=== PATIENT | female | born 1960 | race Caucasian/White ===

== ENCOUNTER 2019-10-29 10:00 | Outpatient (CLI) | payer OTHER, SELFPAY ==
[2019-10-29 10:33] LABS: Basophils Percent Auto 0.6 % (0.2-1.2); Eosinophils Absolute Auto 0.1 K/mm3 (0-0.3); Eosinophils Percent Auto 2.1 % (0-4.4); Hematocrit 39.1 % (37.0-47.0); Hemoglobin 12.9 g/dL (12.0-15.0); Immature Granulocyte Absolute 0.01 K/mm3 (0.00-0.031); Immature Granulocyte Percent A 0.3 % (0-0.5); Lymphocytes Absolute Auto 1.52 K/mm3 (0.9-3.2); Lymphocytes Percent Auto 44.6 % (18.3-44.2); Mean Corpuscular Hemoglobin 30.2 pg (26-34); Mean Corpuscular Volume 91.6 fl (80-100); Mean Platelet Volume 9.9 fl (7.4-10.4); Monocytes Absolute Auto 0.2 K/mm3 (0.1-0.6); Monocytes Percent Auto 6.5 % (2.6-8.5); Neutrophils Absolute Auto 1.6 K/mm3 (1.3-6.7); Neutrophils Percent Auto 45.9 % (45.5-73.1); Platelet Count Result 195 k/mm3 (150-375); Red Blood Count 4.27 M/mm3 (4.2-5.4); Red Cell Distribution Width 11.9 % (11.5-14.5); White Blood Count 3.4 K/mm3 (4.5-10.0)
[2019-10-29 10:35] LABS: Add Urine Microscopic? NO; Appearance Urine Clear (Clear); Bilirubin Urine Negative (Negative); Blood Urine Negative (Negative); Color Urine Straw (Yellow); Glucose Urine UA Negative (Negative); Ketones Urine Negative (Negative); Leukocyte Esterase Ur Negative LEU/UL (Negative); Nitrate Urine Negative (Negative); Protein Urine Negative (Negative); Specific Grav Ur 1.011 (1.001-1.035); Urobilinogen Urine Negative mg/dL (<2.0)
[2019-10-29 10:47] LABS: Alanine Aminotransferase 15 U/L (4-35); Albumin Level 4.3 g/dL (3.5-5.1); Alkaline Phosphatase 47 U/L (38-126); Aspartate Amino Transferase 27 U/L (14-36); Bilirubin,Total 0.6 mg/dL (0.2-1.3); Blood Urea Nitrogen 18 mg/dL (7-17); Calcium 9.2 mg/dL (8.4-10.2); Carbon Dioxide 32 mmol/L (22-30); Chloride 103 mmol/L (98-107); Cholesterol 226 mg/dL (0-200); Estimated Glomerular Filt Rate > 60; Glucose 90 mg/dL (65-105); HDL Direct 76 mg/dL; Potassium 4.4 mmol/L (3.4-5.0); Sodium 138 mmol/L (137-145); Triglycerides 53 mg/dL (<150)
[2019-10-29 10:58] LABS: LDL Cholesterol Direct 112 mg/dL
[2019-10-29 11:16] LABS: Thyroid Stimulating Hormone 0.118 uIU/mL (0.465-4.680)
[2019-10-29 11:36] LABS: Free T4 Free Thyroxine 1.94 ng/mL (0.78-2.19); Vitamin D 25 Hydroxy 55.1 ng/mL
== END 2019-10-29 10:01 | disposition home or self-care (01) ==
PROVIDERS: PCP Internal Medicine; Visit Provider Internal Medicine
DX: E89.0 Postprocedural hypothyroidism (principal); I10 Essential (primary) hypertension; E78.2 Mixed hyperlipidemia
CPT/HCPCS: 36415; 80053; 80061; 81003; 82306; 84439; 84443; 84550; 85025

== ENCOUNTER 2020-03-16 10:57 | Outpatient (CLI) | payer OTHER, SELFPAY ==
[2020-03-16 11:52] LABS: Basophils Percent Auto 0.4 % (0.2-1.2); Eosinophils Absolute Auto 0.1 K/mm3 (0-0.3); Eosinophils Percent Auto 1.5 % (0-4.4); Hematocrit 38.9 % (37.0-47.0); Hemoglobin 12.8 g/dL (12.0-15.0); Immature Granulocyte Absolute 0.01 K/mm3 (0.00-0.031); Immature Granulocyte Percent A 0.2 % (0-0.5); Lymphocytes Absolute Auto 1.66 K/mm3 (0.9-3.2); Lymphocytes Percent Auto 35.2 % (18.3-44.2); Mean Corpuscular HGB Conc 32.9 g/dl (32-36); Mean Corpuscular Hemoglobin 30.5 pg (26-34); Mean Corpuscular Volume 92.6 fl (80-100); Mean Platelet Volume 10.3 fl (7.4-10.4); Monocytes Absolute Auto 0.3 K/mm3 (0.1-0.6); Monocytes Percent Auto 5.3 % (2.6-8.5); Neutrophils Absolute Auto 2.7 K/mm3 (1.3-6.7); Neutrophils Percent Auto 57.4 % (45.5-73.1); Platelet Count Result 210 k/mm3 (150-375); Red Cell Distribution Width 11.9 % (11.5-14.5); White Blood Count 4.7 K/mm3 (4.5-10.0)
[2020-03-16 11:59] LABS: Add Urine Microscopic? NO; Appearance Urine Clear (Clear); Bilirubin Urine Negative (Negative); Blood Urine Negative (Negative); Color Urine Straw (Yellow); Glucose Urine UA Negative (Negative); Ketones Urine Negative (Negative); Leukocyte Esterase Ur Negative LEU/UL (Negative); Nitrate Urine Negative (Negative); Protein Urine Negative (Negative); RBC Urine 0-2 /hpf (0-2); Specific Grav Ur 1.008 (1.001-1.035); Urobilinogen Urine Negative mg/dL (<2.0); WBC Urine 0-3 /hpf
[2020-03-16 12:08] LABS: Alanine Aminotransferase 21 U/L (4-35); Albumin Level 4.4 g/dL (3.5-5.1); Alkaline Phosphatase 49 U/L (38-126); Anion Gap 5 mmol/L (8-16); Aspartate Amino Transferase 30 U/L (14-36); Bilirubin,Total 0.6 mg/dL (0.2-1.3); Blood Urea Nitrogen 17 mg/dL (7-17); Calcium 9.4 mg/dL (8.4-10.2); Carbon Dioxide 32 mmol/L (22-30); Chloride 102 mmol/L (98-107); Cholesterol 258 mg/dL (0-200); Estimated Glomerular Filt Rate > 60; Glucose 89 mg/dL (65-105); HDL Direct 88 mg/dL; Potassium 4.4 mmol/L (3.4-5.0); Sodium 139 mmol/L (137-145); Triglycerides 90 mg/dL (<150)
[2020-03-16 12:19] LABS: LDL Cholesterol Direct 131 mg/dL
[2020-03-16 12:38] LABS: Thyroid Stimulating Hormone 0.983 uIU/mL (0.465-4.680)
[2020-03-16 12:51] LABS: Vitamin D 25 Hydroxy 64.1 ng/mL
[2020-03-16 13:28] LABS: Iron 138 ug/dL (37-170)
[2020-03-16 13:36] LABS: Percent Iron Saturation 45 % (20-50)
[2020-03-16 22:33] LABS: Free T4 Free Thyroxine 1.63 ng/mL (0.78-2.19)
== END 2020-03-16 10:58 | disposition home or self-care (01) ==
LOC: ANHLAB 10:58
PROVIDERS: PCP Internal Medicine; Visit Provider Internal Medicine
DX: E78.2 Mixed hyperlipidemia (principal); D64.9 Anemia, unspecified; I10 Essential (primary) hypertension
CPT/HCPCS: 36415; 80053; 80061; 81003; 82306; 83540; 83550; 84439; 84443; 84550; 85025

== ENCOUNTER 2020-04-26 00:33 | Outpatient (CLI) | payer OTHER, SELFPAY ==
[2020-04-26 18:39] LABS: SARS-CoV-2 RNA PCR Negative
== END 2020-04-26 00:34 | disposition home or self-care (01) ==
LOC: ANHCOVIDDT 00:33
PROVIDERS: PCP Internal Medicine; Visit Provider Internal Medicine Gastroenterology
DX: Z01.812 Encounter for preprocedural laboratory examination (principal); Z20.828 Contact with and (suspected) exposure to other viral communicable diseases
CPT/HCPCS: 87635; C9803; U0003

== ENCOUNTER 2020-04-28 01:45 | Day surgery (SDC) | payer OTHER, SELFPAY ==
[2020-04-24 08:39] VITALS: BMI 29.2
[2020-04-28 09:24] VITALS: BP 126/64; PULSE 61; RESP 20; TEMP 36.1; O2SAT 100
[2020-04-28] MEDS: LACTATED RINGERS 1,000 ML 150 ML IV CONT (09:43)
--- NOTE | 2020-04-28 09:55 | PM.HPGS ---
History of Present Illness History of Present Illness Consent: Risks, benefits, and alternatives have been discussed and questions answered. Patient agrees to proceed with procedure. Chief complaint: Neoplasm Screening Narrative: Rani Pederson is a 59 year old female here for colon cancer screening. Review of Systems Review of Systems: All systems reviewed & are unremarkable except as noted in HPI and below PMFSH Family History Family History Father Depression Mother Depression Hypertension Family history of elevated blood lipids Family history of diabetes mellitus in first degree relative Social History Social History Smoking status: Never smoker Alcohol intake: never Drinks per week: 1 Substance use: never Substance use type: does not use Living arrangements: with family Spiritual care concerns: No Meds Home Medications and Allergies Home Medications Medication Instructions Recorded Confirmed Type albuterol sulfate [ProAir HFA] 2 puff INHALATION Q6-12H PRN 04/24/20 04/24/20 History aspirin [Adult Low Dose Aspirin] 81 mg PO DAILY 04/24/20 04/24/20 History atenolol 50 mg PO DAILY 04/24/20 04/24/20 History cetirizine [Zyrtec] 10 mg PO DAILY 04/24/20 04/24/20 History ferrous sulfate 325 mg PO DAILY 04/24/20 04/24/20 History levothyroxine 125 mcg PO DAILY 04/24/20 04/24/20 History montelukast 10 mg PO DAILY 04/24/20 04/24/20 History pantoprazole 40 mg PO DAILY 04/24/20 04/24/20 History temazepam 15 mg PO HS PRN 04/24/20 04/24/20 History Allergies Allergy/AdvReac Type Severity Reaction Status Date / Time diazepam Allergy Intermediate Confusion Verified 04/28/20 09:21 meclizine [From Antivert] Allergy Mild Dizziness Verified 04/28/20 09:21 morphine Allergy Mild Headache Verified 04/28/20 09:21 Sulfa (Sulfonamide Allergy Mild Hives Verified 04/28/20 09:21 Antibiotics) Vital Signs Vital Signs - 24 hr 04/28/20 09:24 Temperature 36.1 C L Pulse Rate 61 Respiratory Rate 20 Blood Pressure 126/64 Pulse Oximetry 100 Exam Resp: Auscultation: clear to auscultation bilaterally Cardio: Rate: regular rate Rhythm: regular rhythm GI: GI Palp: Yes Soft to palpation and No Tenderness to palpation present (GI) Assessment and Plan Assessment and plan (1) Colon cancer screening: Code(s): Z12.11 - Encounter for screening for malignant neoplasm of colon Status: Acute Assessment and Plan: Colonoscopy with possible biopsy or polypectomy or cautery or injection of substances.
--- NOTE | 2020-04-28 10:26 | WPDANESEPPF ---
Anes - Initial Pre Proc Eval Procedure: Operation Date: 04/28/20 10:30 Proposed Procedures p Screening Colonoscopy - Carlos Benjamin MD Date/Time: 04/28/20 10:26 Surgeon: Carlos Benjamin MD Pre Op Diagnosis: Neoplasm Screening Patient Data Age: 59 Gender: F Height: 5 ft 4 in Weight: 81.8 kg Last Vital Signs Temp 96.9 F L 04/28/20 09:24 Pulse 61 04/28/20 09:24 Resp 20 04/28/20 09:24 BP 126/64 04/28/20 09:24 Pulse Ox 100 04/28/20 09:24 Allergies Allergy/AdvReac Type Severity Reaction Status Date / Time diazepam Allergy Intermediate Confusion Verified 04/28/20 09:21 meclizine [From Antivert] Allergy Mild Dizziness Verified 04/28/20 09:21 morphine Allergy Mild Headache Verified 04/28/20 09:21 Sulfa (Sulfonamide Allergy Mild Hives Verified 04/28/20 09:21 Antibiotics) Home Medications Medication Instructions Recorded Confirmed Type albuterol sulfate [ProAir HFA] 2 puff INHALATION Q6-12H PRN 04/24/20 04/24/20 History aspirin [Adult Low Dose Aspirin] 81 mg PO DAILY 04/24/20 04/24/20 History atenolol 50 mg PO DAILY 04/24/20 04/24/20 History cetirizine [Zyrtec] 10 mg PO DAILY 04/24/20 04/24/20 History ferrous sulfate 325 mg PO DAILY 04/24/20 04/24/20 History levothyroxine 125 mcg PO DAILY 04/24/20 04/24/20 History montelukast 10 mg PO DAILY 04/24/20 04/24/20 History pantoprazole 40 mg PO DAILY 04/24/20 04/24/20 History temazepam 15 mg PO HS PRN 04/24/20 04/24/20 History Patient hx anesthesia problems: none Family hx anesthesia problems: none PMFSH Past Medical History Medical History (Updated 04/28/20 @ 10:27 by Harrison Cole MD) GERD (gastroesophageal reflux disease) Hypertension Hypothyroid Migraine Mitral valve prolapse TIA (transient ischemic attack) two years ago had some visual disturbances; work up normal Family History Family History Father Depression Mother Depression Hypertension Family history of elevated blood lipids Family history of diabetes mellitus in first degree relative Social History Social History Smoking status: Never smoker Alcohol intake: never Drinks per week: 1 Substance use: never Substance use type: does not use Living arrangements: with family Spiritual care concerns: No Anes - Eval Final PreProcedure Day of Procedure 04/28/20 10:26 Patient weight: overweight Heart: regular rate and rhythm Lungs: clear to auscultation Airway: Mallampati scale class II Neurological: alert and oriented Last oral intake: >/= 8 hours ASA classification: III Emergent: no Anesthetic plan: proceed Anesthesia type and monitoring: general GIVS and standard monitoring Informed Consent: The patient's anesthetic plan and its attendant risks and benefits were discussed with the patient/family/POA. Questions were solicited and answers provided to the satisfaction of the patient/family/POA.
[2020-04-28] MEDS: SIMETHICONE ORAL SUSPENSION 20 MG/0.3 ML 30 ML BOTTLE 0.6 ML IRRIGATION (10:40)
[2020-04-28 10:51] VITALS: BP 92/53; PULSE 66; RESP 14; O2SAT 97
[2020-04-28 11:01] VITALS: BP 103/63; PULSE 66; RESP 14; O2SAT 100
[2020-04-28 11:11] VITALS: BP 111/61; PULSE 62; RESP 14; O2SAT 100
== END 2020-04-28 11:30 | disposition home or self-care (01) ==
PROVIDERS: PCP Internal Medicine; Visit Provider Internal Medicine Gastroenterology
PROC: 0DJD8ZZ Inspection of Lower Intestinal Tract, Via Natural or Artificial Opening Endoscopic (ICD-10-PCS; CPT 45378; principal; 2020-04-28 10:30)
DX: Z12.11 Encounter for screening for malignant neoplasm of colon (principal); K57.30 Diverticulosis of large intestine without perforation or abscess without bleeding; I10 Essential (primary) hypertension; E03.9 Hypothyroidism, unspecified; I34.1 Nonrheumatic mitral (valve) prolapse; K21.9 Gastro-esophageal reflux disease without esophagitis; Z79.82 Long term (current) use of aspirin
CPT/HCPCS: 45378; J2704; J7120

== ENCOUNTER 2020-09-28 12:23 | Outpatient (CLI) | payer OTHER, SELFPAY ==
[2020-09-28 13:08] LABS: Basophils Percent Auto 0.2 % (0.2-1.2); Eosinophils Absolute Auto 0.1 K/mm3 (0-0.3); Eosinophils Percent Auto 1.3 % (0-4.4); Hematocrit 38.8 % (37.0-47.0); Hemoglobin 13.1 g/dL (12.0-15.0); Immature Granulocyte Absolute 0.01 K/mm3 (0.00-0.031); Immature Granulocyte Percent A 0.2 % (0-0.5); Lymphocytes Absolute Auto 1.85 K/mm3 (0.9-3.2); Lymphocytes Percent Auto 41.1 % (18.3-44.2); Mean Corpuscular HGB Conc 33.8 g/dl (32-36); Mean Corpuscular Hemoglobin 31.4 pg (26-34); Mean Platelet Volume 9.8 fl (7.4-10.4); Monocytes Absolute Auto 0.3 K/mm3 (0.1-0.6); Monocytes Percent Auto 5.6 % (2.6-8.5); Neutrophils Absolute Auto 2.3 K/mm3 (1.3-6.7); Neutrophils Percent Auto 51.6 % (45.5-73.1); Platelet Count Result 199 k/mm3 (150-375); Red Blood Count 4.17 M/mm3 (4.2-5.4); White Blood Count 4.5 K/mm3 (4.5-10.0)
[2020-09-28 13:10] LABS: Add Urine Microscopic? NO; Appearance Urine Clear (Clear); Bilirubin Urine Negative (Negative); Blood Urine Negative (Negative); Color Urine Yellow (Yellow); Glucose Urine UA Negative (Negative); Ketones Urine Negative (Negative); Leukocyte Esterase Ur Negative LEU/UL (Negative); Nitrate Urine Negative (Negative); Protein Urine Negative (Negative); Specific Grav Ur 1.017 (1.001-1.035); Urobilinogen Urine Negative mg/dL (<2.0)
[2020-09-28 13:23] LABS: Alanine Aminotransferase 21 U/L (4-35); Albumin Level 4.3 g/dL (3.5-5.1); Alkaline Phosphatase 47 U/L (38-126); Anion Gap 3 mmol/L (8-16); Aspartate Amino Transferase 31 U/L (14-36); Bilirubin,Total 0.6 mg/dL (0.2-1.3); Blood Urea Nitrogen 16 mg/dL (7-17); Calcium 9.3 mg/dL (8.4-10.2); Carbon Dioxide 35 mmol/L (22-30); Chloride 103 mmol/L (98-107); Cholesterol 247 mg/dL (0-200); Estimated Glomerular Filt Rate > 60; Glucose 85 mg/dL (65-105); HDL Direct 86 mg/dL; Sodium 141 mmol/L (137-145); Triglycerides 90 mg/dL (<150); Uric Acid 3.5 mg/dL (2.5-7.5)
[2020-09-28 13:34] LABS: LDL Cholesterol Direct 113 mg/dL
[2020-09-28 18:08] LABS: Iron 134 ug/dL (37-170)
[2020-09-28 18:17] LABS: Percent Iron Saturation 48 % (20-50)
[2020-09-28 18:39] LABS: Thyroid Stimulating Hormone Reflex 0.414 uIU/mL (0.465-4.68)
[2020-09-28 18:46] LABS: Vitamin D 25 Hydroxy 51.8 ng/mL
[2020-09-28 19:12] LABS: Free T4 Free Thyroxine Reflex 1.76 ng/dL (0.78-2.19)
[2020-09-30 02:10] LABS: Total Triiodothyronine (T3) 0.96 NG/ML (0.97-1.69)
== END 2020-09-28 12:24 | disposition home or self-care (01) ==
PROVIDERS: PCP Internal Medicine; Visit Provider Internal Medicine
DX: D64.9 Anemia, unspecified (principal); E78.2 Mixed hyperlipidemia; I10 Essential (primary) hypertension; E89.0 Postprocedural hypothyroidism
CPT/HCPCS: 36415; 80053; 80061; 81003; 82306; 83540; 83550; 84439; 84443; 84480; 84550; 85025

== ENCOUNTER → 2020-10-09 13:07 | Outpatient (CLI) | payer OTHER, SELFPAY ==
--- NOTE | ~2020-10-09 | XR_ITS ---
EXAMINATION: XR thoracic spine 3V EXAM DATE: 10/09/2020 13:31 INDICATION: Bilateral thoracic back pain chronic. TECHNIQUE: Frontal and lateral projections of the thoracic spine as well as lateral swimmers projecti on of the upper thoracic spine for interpretation. Comparison is made to prior examination from 2013. FINDINGS: There are cholecystectomy clips. There is mild mid and lower thoracic disc disease. Vertebr al body heights are maintained. The vertebral bodies are aligned in the AP dimension. Paraspinal soft tissue is unremarkable. IMPRESSION: Mild thoracic spondylosis. Reviewed, dictated and finalized at location A. IMPRESSION: Mild thoracic spondylosis.
== END ==
PROVIDERS: PCP Internal Medicine; Visit Provider Internal Medicine
DX: G89.29 Other chronic pain (principal)
CPT/HCPCS: 72072

== ENCOUNTER 2020-10-27 09:56 | Outpatient (CLI) | payer OTHER, SELFPAY ==
--- NOTE | ~2020-10-27 | DEXA_ITS ---
Bone Density Report Name: Rani Pederson Age: 60 Sex: Female Ethnicity: White Date of : 1960 Indication: postmenopausal; asthma or emphysema; hysterectomy; Referring Provider: Terrance, Ramos Nicholson Study: Bone densitometry was performed. Exam Date: October 27, 2020 Accession number: [id number] Bone Density: Region BMD T-score Z-score Classification AP Spine (L1-L4) 1.036 -0.1 1.2 Normal Femoral Neck (Left) 0.854 0.0 1.2 Normal Total Hip (Left) 0.977 0.3 1.1 Normal Total Hip Bilateral Avg 0.931 -0.1 0.8 Normal Femoral Neck (Right) 0.818 -0.3 0.9 Normal Total Hip (Right) 0.885 -0.5 0.4 Normal World Health Organization criteria for BMD impression classify patients as: Normal (T-score at or above -1.0), Osteopenia (T-score between -1.0 and -2.5), or Osteoporosis (T-score at or below -2.5). 10-year Fracture Risk: FRAX not reported because: All T-scores for Spine Total, Hip Total, Femoral Neck at or above -1.0 Clinical Information Provided by Patient: Has used the following medications: Vitamin D Has the following medical conditions: Asthma or Emphysema, Hysterectomy Patient maximum height was 64 Menopause Age: 52 Drinks caffeinated beverages Onset of menses at age 14 Number of children 2 Impression: The patient has normal bone mass. Discussion: BONE DENSITY IS ABOVE THE MINIMUM DESIRABLE LEVEL AT ALL SKELETAL SITES TESTED. This patient?s bone mineral density is above the minimum desirable level (T-score -1.0 or better) at all sites measured. The patient should follow a healthful lifestyle (good nutrition with adequate calcium and vitamin D, and appropriate weight-bearing exercise). Follow-Up: Consider repeating this study in 5 years or sooner if there is some new clinical indication. Reported by: VAMSI on 10/27/2020 10:41:00 AM. Reviewed, dictated and finalized at location [facility] BRIGHT
== END 2020-10-27 09:57 | disposition home or self-care (01) ==
LOC: ANHIMG 09:58
PROVIDERS: PCP Internal Medicine; Visit Provider Internal Medicine
DX: Z78.0 Asymptomatic menopausal state (principal)
CPT/HCPCS: 77080

== ENCOUNTER → 2020-11-15 10:32 | Outpatient (CLI) | payer OTHER, BC, SELFPAY ==
--- NOTE | ~2020-11-15 | XR_ITS ---
EXAMINATION: XR foot RT min 3V EXAM DATE: 11/15/2020 10:47 INDICATION: No known recent injury provided at this time. Pain of the right foot. TECHNIQUE: Right foot dorsoplantar, lateral and oblique projections obtained and reviewed. There is no prior study for comparison. FINDINGS: Right metatarsal bones unremarkable. There are no bony erosions identified. There are n o acute fractures or dislocations identified. There is no subcutaneous gas. The soft tissue is unre markable. There are no radiopaque foreign bodies. Tiny inferior calcaneal spur. IMPRESSION: Tiny right calcaneal spur. Reviewed, dictated and finalized at location B. IMPRESSION: Tiny right calcaneal spur.
== END ==
PROVIDERS: PCP Registered Nurse; Visit Provider Registered Nurse
DX: M79.671 Pain in right foot (principal)
CPT/HCPCS: 73630

== ENCOUNTER 2021-07-12 07:02 | Outpatient (CLI) | payer OTHER, BC, SELFPAY ==
--- NOTE | ~2021-07-12 | CT_ITS ---
EXAMINATION: CT brain wo con EXAM DATE: 07/12/2021 07:21 INDICATION: Unsteady gait, new onset right frontal headache. TECHNIQUE: Spiral CT of the head was performed without contrast. Axial, coronal and sagittal images were reviewed. The dose-length product (DLP) for this examination was 529.67 mGy-cm. The exposure w as tailored according to patient size, and iterative reconstruction (ASIR) was used as additional dos e reduction technique. There is no prior study for comparison. FINDINGS: There is no acute intraparenchymal hemorrhage. No evidence of intraparenchymal brain mass lesion. No evidence of acute infarction. There is no mass effect or midline shift. The ventricles are normal in size. There are no extra-axial collections. There are no acute calvarial fractures. T he orbits are unremarkable. Soft tissue is unremarkable. The visualized sinuses and mastoid air stefani ls are well aerated. IMPRESSION: 1. No acute intracranial findings. Reviewed, dictated and finalized at location A. EM SOFTWARE DEVELOPER
== END 2021-07-12 07:03 | disposition home or self-care (01) ==
LOC: ANHIMG 07:04
PROVIDERS: PCP Registered Nurse; Visit Provider Internal Medicine
DX: R26.81 Unsteadiness on feet (principal); R51.9 Headache, unspecified
CPT/HCPCS: 70450

== ENCOUNTER 2021-09-19 08:55 | Outpatient (CLI) | payer BC, SELFPAY ==
--- NOTE | ~2021-09-19 | MM_ITS ---
EXAMINATION: MM screening betina BI w rosie HISTORY: Screening TECHNIQUE: Craniocaudal and mediolateral oblique 3-D tomosynthesis images were obtained and synthetic 2-D images were generated. CAD analysis was submitted and interpreted. COMPARISON: Comparison to multiple prior studies sequentially, with oldest reviewed study dated 07/2013. BREAST PARENCHYMAL COMPOSITION: There are scattered areas of fibroglandular density. FINDINGS: There is no evidence of suspicious mass, calcification, or architectural distortion to sugg est malignancy in either breast. There has been no suspicious interval change. IMPRESSION: 1. No mammographic evidence of malignancy. 2. Recommend routine screening mammography in one year. BI-RADS Category 1: Negative Reviewed, dictated and finalized at location A. E ACCURACY SUPERVISOR
== END 2021-09-19 08:56 | disposition home or self-care (01) ==
PROVIDERS: PCP Registered Nurse; Visit Provider Internal Medicine
DX: Z12.31 Encounter for screening mammogram for malignant neoplasm of breast (principal)
CPT/HCPCS: 77063; 77067

== ENCOUNTER 2024-10-13 14:04 | Outpatient (CLI) | payer OTHER, SELFPAY ==
--- NOTE | ~2024-10-13 | MM_ITS ---
EXAMINATION: MM screening [facility]ina BI w rosie HISTORY: Screening TECHNIQUE: Craniocaudal and mediolateral oblique 3-D tomosynthesis images were obtained and synthetic 2-D images were generated. CAD analysis was submitted and interpreted. COMPARISON: Comparison to multiple prior studies sequentially, with oldest reviewed study dated 06/13. BREAST PARENCHYMAL COMPOSITION: Not dense: There are scattered areas of fibroglandular density. FINDINGS: There is no evidence of suspicious mass, calcification, or architectural distortion to sugg est malignancy in either breast. There has been no suspicious interval change. IMPRESSION: 1. No mammographic evidence of malignancy. 2. Recommend routine screening mammography in one year. BI-RADS Category 1: Negative Reviewed, dictated and finalized at location A.
--- OUTSIDE RECORDS SUMMARY | 2024-10-13 15:29 | XMS_ITS | Clinical Summary ---
Author Organization [facility] at the [facility] Office Center Address [facility] [place] [address] Care Team Providers Care Director Export Name Role Phone Mattie Norman MD Unavailable [phone] Ramos Carlos MD Primary Care Provider [phone] Allergies Active Allergy Reactions Criticality Noted Date Comments Hydrocodone-Acetaminophen Unknown 03/19/2019 Meclizine Anxiety Low 01/20/2014 Morphine Anxiety Low 01/20/2014 Medications levothyroxine (SYNTHROID, LEVOTHROID) 125 mcg tablet Take 125 mcg by mouth stocklayer before breakfast [address] (PROTONIX) 40 mg EC tablet Take 40 mg by mouth daily 3 9 Active montelukast (SINGULAIR) 10 mg tablet Take 10 mg by mouth daily 0 9 Active atenolol (TENORMIN) 50 mg tablet Take 50 mg by mouth daily 3 9 Active traZODone (DESYREL) 50 mg tablet Take 50 mg by mouth nightly 0 9 Active cetirizine (ZyrTEC) 10 mg tablet Take 10 mg by mouth daily Active aspirin 81 mg enteric coated tablet Take 81 mg by mouth daily Active ferrous sulfate 325 mg (65 mg of elemental iron) tablet TAKE 1 TABLET BY MOUTH EVERY DAY WITH BREAKFAST 30 tablet 5 0 Active Additional Information Patient taking differently: 65 mg of elemental iron oral Daily with breakfast, Reported on 04/06/[address] (VOLTAREN) 75 mg EC tablet Take 75 mg by mouth 2 (two) times a day 1 Active melatonin 10 mg tablet Take 10 mg by mouth nightly OTC Active hydrOXYzine (ATARAX) 25 mg tablet Take 1 tablet (25 mg total) by mouth 3 (three) times a day as needed for anxiety 25 tablet 11 1 Active Active Problems Problem Noted Date Diagnosed Date Chest pain at rest 04/06/2021 Near syncope 03/19/2019 Hypothyroidism 03/19/2019 Anemia 03/19/2019 GERD (gastroesophageal reflux disease) 6 Benign essential HTN 01/20/2014 Palpitations 11/27/2013 Overview (10/16/2016): PALPITATIONS Hyperlipidemia 11/27/2013 Overview (10/18/2016): MIXED HYPERLIPIDEMIA Coronary artery disease 11/27/2013 Overview (10/18/2016): CAD (coronary artery disease) Chest pain 11/27/2013 Overview (10/18/2016): CHEST PAIN NOS Anxiety 02/22/2013 Overview (10/18/2016): Anxiety Coronary artery spasm 02/22/2013 Overview (10/18/2016): Coronary artery spasm Asthma Overview (04/06/2021): Asthma Hypothyroidism Resolved Problems Problem Noted Date Diagnosed Date Resolved Date Hypertension 11/27/2013 04/08/2019 Overview (10/18/2016): HYPERTENSION NOS Medical History Medical History Date Comments Endometritis Endometriosis Hx Other Medical Depression, wit h Anxiety Asthma Asthma Coronary artery disease Hypertension Hypothyroid Hyperlipidemia GERD (gastroesophageal reflux disease) Family History Medical History Relation Name Comments Heart attack Maternal Grandfather 2 Myoca rdial Infarction; Other Maternal Grandmother 2 Aorti c Aneurysm, Abdominal; Cause of : Aortic Aneurysm, Abdominal Relation Name Status Comments Maternal Grandfather 1 Alive Maternal Grandfather 2 Maternal Grandmother 1 Maternal Grandmother 2 Social History Tobacco Use Types Packs/Day Years Used Date Smoking Tobacco: Former Alcohol Use Standard Drinks/Week Comments Yes 0 (1 standard drink = 0.6 oz pur e alcohol) AUDIT-C Answer Date Recorded Q1: How often do you have a drink containing alc ohol? 2-4 times a month 04/06/2021 Q2: How many drinks containi ng alcohol do you have on a typical day when you are drinking? 1 or 2 04/06/2021 Q3: How often do you have si x or more drinks on one occasion? Never 04/06/2021 Comments Unknown Sex and Gender Information Value Date Recorded Sex Assigned at Not on file Legal Sex Female 12:45 AM INFRASTRUCTURE DIRECTOR Gender Identity Not on file Sexual Orientation Not on file Obstetrics History Last Filed Vital Signs Vital Sign Reading Time Taken Comments Blood Pressure 128/81 04/07/2021 7:00 AM CDT Pulse 70 04/07/2021 7:00 AM CDT Temperature 36.7 C (98 F) 04/07/2021 7:00 AM CDT Respiratory Rate 18 04/07/2021 7:00 AM CDT Oxygen Saturation 96% 04/07/2021 7:00 AM CDT Inhaled Oxygen Concentration - - Weight 87.2 kg (192 lb 3.9 oz) 04/07/2021 6:09 A M CDT Height 160 cm (5' 3 ) 04/06/2021 9:49 AM CDT Body Mass Index 34.05 04/06/2021 9:49 AM CDT Plan of Treatment Not on file Insurance [facility] Care Teams Director Export Relationship Specialty Start Date End Date Ramos Carlos MD [address] [place] [id number] PCP - General Internal Medicine 03/19/19 Mattie Norman MD [address] [place] [address] Sheet Rock Layer Cardiovascular Disease 03/10/19
--- OUTSIDE RECORDS SUMMARY | 2024-10-13 15:29 | XMS_ITS | Encounter Summary ---
Author Organization [facility] Address [address] [place] [id number] Care Team Providers Care Coat Tailor Name Role Phone Ramos Carlos MD Primary Care Provider [phone] Mattie Norman MD Unavailable [phone] Carlos Benjamin MD Unavailable Encounter Details Date Type Department Care Team (Late st Contact Info) Description 07/05/2022 MyChart Message Enc [facility] Family & Internal Medicine [address] [address] Josefa Cruz, SIGN LANGUAGE INSTRUCTOR Xray results Social History Tobacco Use Types Packs/Day Years Used Date Smoking Tobacco: Former Cigarettes Q uit: 07/14/1992 Smokeless Tobacco: Never Alcohol Use Standard Drinks/Week Comments Yes 1.7 (1 standard drin k = 0.6 oz pure alcohol) 1 glass of wine 2-3 times a month AUDIT-C Answer Date Recorded Frequency of Alcohol Consumption 2-4 times a fri02/25/2019 Average Number of Drinks 1 or 2 019 Frequency of Binge Drinking Never 02/11 PHQ-2 Answer Date Recorded PHQ-2 Score - If the patient scores above 3, please move on to questions 3-9 0 12/05/2021 Comments No Sex and Gender Information Value Date Recorded Sex Assigned at Female 07/02/2024 10:02 AM SALT MACHINE OPERATOR Legal Sex Female 8:02 PM CDT Gender Identity Female 07/02/2024 10:02 AM SALT MACHINE OPERATOR Sexual Orientation Not on file COVID-19 Exposure Response Date Recorded In the last 10 days, have [facility] been in contact with someone who was confirmed or suspected to have Coronavirus/COVID-19? No / Unsure 07/03/2022 11:36 AM SALT MACHINE OPERATOR documented as of this encounter Plan of Treatment Not on file documented as of this encounter Visit Diagnoses Not on filedocumented in this encounter Additional Health Concerns Infection Onset Date Last Indicated Resolved Time COVID-19 Rule Out 08/27/2024 08/27/2024 08/27/2024 2:00 PM SALT MACHINE OPERATOR Influenza - Seasonal 08/27/2024 08/27/2024 025 12:32 AM SALT MACHINE OPERATOR Assessment Noted Time PHQ-9 Depression Total Score: 6 11/11/19 21 11:25 AM CDT documented as of this encounter Care Teams Coat Tailor Relationship Specialty Start Date End Date Ramos Carlos MD [address] [place] [address] PCP - General INTERNAL MEDICINE 10/22/18 Mattie Norman MD [address] [facility] [address] [place] [address] [address] CARDIOVASCULAR DISEASE 03/17/19 Carlos Benjamin MD [address] [facility] [address] [place] [address] GASTROENTEROLOGY 05/19/20 documented as of this encounter
--- OUTSIDE RECORDS SUMMARY | 2024-10-13 15:29 | XMS_ITS | Encounter Summary ---
Author Organization [facility] Address [address] [place] [address] Care Team Providers Care Glass Furnace Operator Name Role Phone Shivani Weeks MD Primary Care Provider + Encounter Details Date Type Department Care Team (Late st Contact Info) Description 02/10/2019 Lab Requisition [facility] DermPath Lab [address] [facility] [place] [id number] Bakari Hopper MD [address] [place] [address] Social History Tobacco Use Types Packs/Day Years Used Date Smoking Tobacco: Never Assessed Sex and Gender Information Value Date Recorded Sex Assigned at Not on file Gender Identity Not on file Sexual Orientation Not on file documented as of this encounter Plan of Treatment Not on file documented as of this encounter Procedures Procedure Name Priority Date/Time Associated Diagnosis Comments DERMATOPATHOLOGY Routine 02/09/2019 12:0 0 AM CDT documented in this encounter Results * DERMATOPATHOLOGY (02/09/2019 12:00 AM CDT) Case Report Dermatopathology Report Case: [id number] Authorizing Provider: Bakari Hopper MD Collected: 02/09/2019 12:00 AM Pathologist: Bhumi Good MD Received: 02/10/2019 01:19 PM Specimen: Skin, left lateral tenriism 4:27 PM CDT DERMATOPATHOLOGY LABORATORY Final Diagnosis Specimen A. SKIN, left lateral tenriism: GRANULOMATOUS DERMATITIS CONSISTENT WITH A RUPTURED CYST OR HAIR FOLLICLE (L72.0) (see microscopic description) 4:27 PM CDT DERMATOPATHOLOGY LABORATORY Clinical History R/O BCC, SCC. 4:27 PM CDT DERMATOPATHOLOGY LABORATORY Gross Description Specimen A: Received is one formalin filled container labeled with the patient's name and designated left lateral tenriism. The specimen consists of a shave biopsy measuring [id number]. Jar 0. 4:27 PM CDT DERMATOPATHOLOGY LABORATORY Microscopic Description Specimen A. SKIN, left lateral tenriism: Neutrophils, histiocytes, and multinucleated giant cells are present within the dermis. There is no evidence of epithelial dysplasia or malignancy in multiple deeper sections examined. 4:27 PM CDT DERMATOPATHOLOGY LABORATORY Disclaimer An external and internal positive and negative controls are appropriate for the histochemical, immunohistochemical and immunofluorescence stain(s) in this case (if any), except where stated explicitly. The performance characteristics of the stain(s) cited in this report were developed and its performance characteristic determined by the Dermatopathology Laboratory at [facility], directed by Dr. Willie Good. These tests need not be, and therefore are not, approved by the [place] Food and Drug Administration. The tests are used for clinical purposes. Billing Codes Specimen Charges Stain Charges 40993 1 4:27 PM CDT DERMATOPATHOLOGY LABORATORY Embedded Images 4:27 PM CDT DERMATOPATHOLOGY LABORATORY Pathology/Cytolog y TISSUE SPECIMEN FROM SKIN / Unknown 02/09/2019 02/10/2019 1:19 PM CDT Bakari Hopper MD LAB - PATHOLOGY/CYTO LOGY ORDERABLES DERMATOPATHOLOGY LABORATORY [facility] - Department of Dermatology [address] [facility]th [address] Lab [address] [place], [place] [id number] [place] [address] documented in this encounter Visit Diagnoses Not on filedocumented in this encounter Care Teams Glass Furnace Operator Relationship Specialty Start Date End Date Shivani Weeks MD [address] [place] [address] PCP - General 02/10/19 documented as of this encounter
--- OUTSIDE RECORDS SUMMARY | 2024-10-13 15:29 | XMS_ITS | Referral Summary ---
Author Organization [facility] at the [facility] Office Center Address [address] [place] [address] Care Team Providers Care Cargo Tank Mechanic Name Role Phone Mattie Norman MD Unavailable [phone] Ramos Carlos MD Primary Care Provider [phone] Allergies Active Allergy Reactions Criticality Noted Date Comments Hydrocodone-Acetaminophen Unknown 03/19/2019 Meclizine Anxiety Low 01/20/2014 Morphine Anxiety Low 01/20/2014 Medications levothyroxine (SYNTHROID, LEVOTHROID) 125 mcg tablet Take 125 mcg by mouth early morning babysitter before breakfast [address] [...] Hypertension 11/27/2013 04/08/2019 Overview (10/18/2016): HYPERTENSION NOS Social History Tobacco Use Types Packs/Day Years [...] on file Legal Sex 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
--- OUTSIDE RECORDS SUMMARY | 2024-10-13 15:29 | XMS_ITS | Encounter Summary ---
Author Organization [facility] Address [address] [place] [address] Care Team Providers Care Children Counselor Name Role Phone Ramos Carlos MD Primary Care Provider [phone] Mattie Norman MD Unavailable [phone] Carlos Benjamin MD Unavailable [phone] Encounter Details Date Type Department Care Team (Late st Contact Info) Description 07/09/[address] [facility] Family [facility] Internal Medicine [facility] [address] [place] [address] Ramos Carlos MD [facility] [place] [address] Sick Social History Tobacco Use Types Packs/Day Years [...] Drinking Never 02/11 PHQ-2 Answer Date Recorded Patient Health Questionnaire-2 Score 0 01/29/2023 Comments No Sex and Gender Information Value Date Recorded Sex Assigned at Female 07/02/2024 10:02 AM TRANSPORT COORDINATOR Legal Sex Female 8:02 PM CDT Gender Identity Female 07/02/2024 10:02 AM TRANSPORT COORDINATOR Sexual Orientation Not on file documented as of this encounter Progress Notes * Ramos Carlos MD - 07/10/2023 5:23 PM CST She will need to be seen for nodule on her neck. Okay for Refill of levothyroxine. SPORT COORDINATOR documented in this encounter Plan of Treatment Not on file documented as of this encounter Visit Diagnoses Not on filedocumented in this encounter Additional Health Concerns Infection Onset Date Last Indicated Resolved Time COVID-19 Rule Out 08/27/2024 08/27/2024 08/27/2024 2:00 PM TRANSPORT COORDINATOR Influenza - Seasonal 08/27/2024 08/27/2024 025 12:32 AM TRANSPORT COORDINATOR Assessment Noted Time PHQ-9 Depression Total Score: 6 11/11/19 21 11:25 AM CDT documented as of this encounter Care Teams Children Counselor Relationship Specialty Start Date End Date Ramos Carlos MD [address] [place] [address] PCP - General INTERNAL MEDICINE 10/22/18 Mattie Norman MD [address] [place] [address] [address] CARDIOVASCULAR DISEASE 03/17/19 Carlos Benjamin MD [address] [place] [address] [address] GASTROENTEROLOGY 05/19/20 documented as of this encounter
--- OUTSIDE RECORDS SUMMARY | 2024-10-13 15:29 | XMS_ITS | Encounter Summary ---
Author Organization [facility] Facility Care Team Providers Care Board Member Name Role Phone Shivani Weeks MD Primary Care Provider Mattie Norman MD Unavailable Ramos Carlos MD Primary Care Provider Encounter Details Date Type Department Care Team (Latest Contact Info) Description 06/07/2015 Orders Only [facility] CLINCONV Provider, MD Arm[place] [address] [place] [address] Social History Tobacco Use Types Packs/Day Years Used Date Smoking Tobacco: Former Cigarettes Q uit: 07/14/1996 Alcohol Use Standard Drinks/Week Comments Yes 0 (1 standard drink = 0.6 oz pur e alcohol) Comments Unknown Sex and Gender Information Value Date Recorded Sex Assigned at Not on file Legal Sex Female 12:45 AM UNDERWRITING CLERKS SUPERVISOR Gender Identity Not on file Sexual Orientation Not on file documented as of this encounter Plan of Treatment Not on file documented as of this encounter Procedures Procedure Name Priority Date/Time Associated Diagnosis Comments PROCEDURE - RESULT 06/07/2015 12 :00 AM UNDERWRITING CLERKS SUPERVISOR documented in this encounter Results * PROCEDURE - RESULT (06/07/2015 12:00 AM UNDERWRITING CLERKS SUPERVISOR) Narrative 06/07/2015 12:00 AM UNDERWRITING CLERKS SUPERVISOR Ordered by an unspecified provider. Historical Provider Final Res ult documented in this encounter Visit Diagnoses Not on filedocumented in this encounter Additional Health Concerns Infection Onset Date Last Indicated Resolved Time COVID: Suspected 04/06/2021 04/06/2021 04/06/2021 2:04 PM CDT documented as of this encounter Care Teams Board Member Relationship Specialty Start Date End Date Shivani Weeks MD [address] [facility] [address] [place] [address] PCP - General 09/20/09 03/18/19 Ramos Carlos MD [address] [place] [address] PCP - General Internal Medicine 03/19/19 Mattie Norman MD [address] [address] Purification Operator Helper Cardiovascular Disease 03/10/19 documented as of this encounter
--- OUTSIDE RECORDS SUMMARY | 2024-10-13 15:29 | XMS_ITS | Encounter Summary ---
Author Organization [facility] Address [address] [place] [address] Care Team Providers Care Dolly Pusher Name Role Phone Ramos Carlos MD Primary Care Provider [phone] Mattie Norman MD Unavailable [phone] Carlos Benjamin MD Unavailable [phone] Encounter Details Date Type Department Care Team (Late st Contact Info) Description 01/08/2023 MyChart Message Enc [facility] [address] [place], [place] [id number] [employer] Provider Air Quality Message Social History Tobacco Use Types Packs/Day Years [...] Sex Assigned at Female 07/02/2024 10:02 AM FURNACE INSTALLER Legal Sex Female 8:02 PM CDT Gender Identity Female 07/02/2024 10:02 AM FURNACE INSTALLER Sexual Orientation Not on file documented as of this encounter Plan of Treatment Not on file documented as of this encounter Visit Diagnoses Not on filedocumented in this encounter Additional Health Concerns Infection Onset Date Last Indicated Resolved Time COVID-19 Rule Out 08/27/2024 08/27/2024 08/27/2024 2:00 PM FURNACE INSTALLER Influenza - Seasonal 08/27/2024 08/27/2024 025 12:32 AM FURNACE INSTALLER Assessment Noted Time PHQ-9 Depression Total Score: 6 11/11/19 21 11:25 AM CDT documented as of this encounter Care Teams Dolly Pusher Relationship Specialty Start Date End Date Ramos Carlos MD [address] [place] [address] PCP - General INTERNAL MEDICINE 10/22/18 Mattie Norman MD [address] [facility] [address] [place] [address] [address] CARDIOVASCULAR DISEASE 03/17/19 Carlos Benjamin MD [address] [facility] [address] [place] [address] [address] GASTROENTEROLOGY 05/19/20 documented as of this encounter
--- OUTSIDE RECORDS SUMMARY | 2024-10-13 15:29 | XMS_ITS | Encounter Summary ---
Author Organization [facility] Facility Care Team Providers Care Factory Engineer Name Role Phone Shivani Weeks MD Primary Care Provider Mattie Norman MD Unavailable [phone] Ramos Carlos MD Primary Care Provider [phone] Encounter Details Date Type Department Care Team (Latest Contact Info) Description 06/12/2015 Orders Only [facility] CLINCONV Provider, MD Armida [address] [place] [address] Social History Tobacco Use Types Packs/Day Years Used Date Smoking Tobacco: Former Cigarettes Q uit: 07/14/1996 Alcohol Use Standard Drinks/Week Comments Yes 0 (1 standard drink = 0.6 oz pur e alcohol) Comments Unknown Sex and Gender Information Value Date Recorded Sex Assigned at Not on file Legal Sex Female 12:45 AM SOCIETY REPORTER Gender Identity Not on file Sexual Orientation Not on file documented as of this encounter Plan of Treatment Not on file documented as of this encounter Procedures Procedure Name Priority Date/Time Associated Diagnosis Comments PROCEDURE - RESULT 06/12/2015 12 :00 AM SOCIETY REPORTER PROCEDURE - RESULT 06/12/2015 12 :00 AM SOCIETY REPORTER documented in this encounter Results * PROCEDURE - RESULT (06/12/2015 12:00 AM SOCIETY REPORTER) Narrative 06/12/2015 12:00 AM SOCIETY REPORTER Ordered by an unspecified provider. us Historical Provider MD Final Res ult * PROCEDURE - RESULT (06/12/2015 12:00 AM SOCIETY REPORTER) Narrative 06/12/2015 12:00 AM SOCIETY REPORTER Ordered by an unspecified provider. us Historical Provider Final Res ult documented in this encounter Visit Diagnoses Not on filedocumented in this encounter Additional Health Concerns Infection Onset Date Last Indicated Resolved Time COVID: Suspected 04/06/2021 04/06/2021 04/06/2021 2:04 PM CDT documented as of this encounter Care Teams Factory Engineer Relationship Specialty Start Date End Date Shivani Weeks MD [address] [facility] [address] [place] [address] PCP - General 09/20/09 03/18/19 Ramos Carlos MD [address] [place] [address] PCP - General Internal Medicine 03/19/19 Mattie Norman MD [address] [facility] [address] [address] Customs Guard Cardiovascular Disease 03/10/19 documented as of this encounter
--- OUTSIDE RECORDS SUMMARY | 2024-10-13 15:29 | XMS_ITS | Encounter Summary ---
Author Organization [facility] Facility Care Team Providers Care Mold Filler And Drainer Name Role Phone Shivani Weeks MD Primary Care Provider Mattie Norman MD Unavailable [phone] Ramos Carlos MD Primary Care Provider [phone] Encounter Details Date Type Department Care Team (Latest Contact Info) Description 04/18/2015 Orders Only [facility] CLINCONV Provider, MD Armida [address] [place] [address] Social History Tobacco Use Types Packs/Day Years Used Date Smoking Tobacco: Former Cigarettes Q uit: 07/14/1996 Alcohol Use Standard Drinks/Week Comments Yes 0 (1 standard drink = 0.6 oz pur e alcohol) Comments Unknown Sex and Gender Information Value Date Recorded Sex Assigned at Not on file Legal Sex Female 12:45 AM INSURANCE SALES SPECIALIST Gender Identity Not on file Sexual Orientation Not on file documented as of this encounter Plan of Treatment Not on file documented as of this encounter Procedures Procedure Name Priority Date/Time Associated Diagnosis Comments PROCEDURE - RESULT 06/23/2015 12 :00 AM INSURANCE SALES SPECIALIST documented in this encounter Results * PROCEDURE - RESULT (06/23/2015 12:00 AM INSURANCE SALES SPECIALIST) Narrative 06/23/2015 12:00 AM INSURANCE SALES SPECIALIST Ordered by an unspecified provider. Historical Provider Final Res ult documented in this encounter Visit Diagnoses Not on filedocumented in this encounter Additional Health Concerns Infection Onset Date Last Indicated Resolved Time COVID: Suspected 04/06/2021 04/06/2021 04/06/2021 2:04 PM CDT documented as of this encounter Care Teams Mold Filler And Drainer Relationship Specialty Start Date End Date Shivani Weeks MD [address] [facility] [address] [place] [address] PCP - General 09/20/09 03/18/19 Ramos Carlos MD [address] [place] [address] PCP - General Internal Medicine 03/19/19 Mattie Norman MD [address] [address] Lens Cleaner Cardiovascular Disease 03/10/19 documented as of this encounter
--- OUTSIDE RECORDS SUMMARY | 2024-10-13 15:29 | XMS_ITS | Clinical Summary ---
Author Organization [facility] Address [facility] [place] [address] Care Team Providers Care Passenger Car Upholsterer Apprentice Name Role Phone Ramos Carlos MD Primary Care Provider [phone] Mattie Norman MD Unavailable [phone] Carlos Benjamin MD Unavailable [phone] Allergies Active Allergy Reactions Criticality Noted Date Comments Hydrocodone-Acetaminophen Hallucinations 2018 Meclizine Anxiety Low 01/20/2014 Morphine Anxiety Low 01/20/2014 Medications cetirizine 10 MG tablet Take 1 tablet (10 mg total) by mouth daily. Active montelukast (SINGULAIR) 10 MG tabletIndications: Asthma (HHS/HCC) TAKE 1 TABLET NIGHTLY AT BEDTIME 90 tablet 3 4 Active escitalopram (LEXAPRO) 10 MG tabletIndications: Anxiety take 1 tablet daily 90 tablet 3 4 Active traZODone (DESYREL) 50 MG tabletIndications: Insomnia TAKE 1 TABLET NIGHTLY AT BEDTIME 90 tablet 2 4 Active atenolol (TENORMIN) 50 MG tabletIndications: HTN (hypertension) take 1 tablet daily 90 tablet 2 4 Active pantoprazole EC (PROTONIX) 40 MG tabletIndications: GERD (gastroesophageal reflux disease) TAKE 1 TABLET DAILY 90 tablet 3 4 Active diclofenac EC (VOLTAREN) 75 MG tabletIndications: Osteoarthritis of knee TAKE 1 TABLET TWICE A DAY 180 tablet 1 5 Active predniSONE (DELTASONE) 20 MG tabletIndications: Acute non-recurrent maxillary sinusitis Take 3 tablets for three days, then take 2 tablets for three days, then take 1 tablet for three days 18 tablet 5 Active levothyroxine (SYNTHROID) 125 MCG tabletIndications: Hypothyroidism TAKE 1 TABLET BY MOUTH EVERY MORNING 30 tablet 5 Active levothyroxine (SYNTHROID) 125 MCG tabletIndications: Hypothyroidism TAKE 1 TABLET EVERY MORNING 90 tablet 3 5 Active liothyronine (CYTOMEL) 5 MCG TabIndications:Pos toperative hypothyroidism TAKE 1 TABLET DAILY 90 tablet 3 5 Active albuterol sulfate HFA (VENTOLIN HFA) 108 (90 Base) MCG/ACT inhalerIndications :Mild intermittent asthma, unspecified whether complicated (HHS/HCC) Inhale 2 puffs into the lungs every 6 (six) hours as needed for Wheezing. 18 g 2 5 Active FEROSUL 325 (65 Fe) MG tabletIndications: Anemia, unspecified type TAKE 1 TABLET DAILY WITH BREAKFAST 90 tablet 3 5 Active Active Problems Problem Noted Date Diagnosed Date Calcaneal spur of right foot 07/10/2022 Anemia 03/19/2019 BMI 30.0-30.9,adult 01/23/2017 Restless legs syndrome 07/20/2015 Osteoarthritis of knee 10/20/2014 Pain in joint 07/28/2014 Postmenopausal status 01/28/2014 Asthma (HHS/HCC) 01/20/2014 Acid reflux disease 01/20/2014 Benign essential hypertension 01/20/2014 Hyperlipidemia 01/20/2014 Insomnia 01/20/2014 Postoperative hypothyroidism 01/20/2014 Atherosclerosis of coronary artery 11/27/2013 Overview (02/25/2019): Overview: CAD (coronary artery disease) Anxiety 02/22/2013 Overview (02/25/2019): Overview: Anxiety Coronary artery spasm 02/22/2013 Overview (09/20/2020): Coronary artery spasm Resolved Problems Problem Noted Date Diagnosed Date Resolved Date Migraine headache 01/20/2014 07/02/2024 Encounters Date Type Department Care Team Description 10/11/2024 Telephone [facility] [address] [address] Ramos Carlos MD Lab Results 10/06/2024 8:20 AM CDT Laboratory Only [address] [address] Ramos Carlos MD 10/06/2024 - 10/06/2024 11:59 PM CDT Hospital Encounter [facility] [address] Ramos Carlos MD Discharge Disposition: Home or Self Care (Routine Discharge) 10/06/2024 Travel 09/27/[address] [address] Ramos Carlos MD Fatigue; Dizziness 08/27/2024 11:20 AM MULE DRIVER Telemedicine [address] [address] Lisa Lew APNP Cough (/) 08/27/2024 Travel 08/27/[address] [address] Ramos Carlos MD Cough; Body Aches 08/23/2024 Scan [facility] Scanned[facility] 07/28/2024 Scan [facility] Scanned, [facility] 07/24/2024 Scan [facility] Scanned, [facility] 07/22/2024 Scan [facility] Scanned, [facility] 07/21/[address] [address] Ramos Carlos MD Eye Problem from Last 3 Months Immunizations Name Administration Dates Next Due Afluria 36 MONTHS+ (Prefilled Syringe IIV4) 03/14 Fluzone 6 Months+ Quad (0.5 mL Prefilled Syringe) 03/30/2020 Hepatitis B (Generic: Adult) 06/30/2001,12/30/19,11/26/2000 Influenza (Generic) 05/13/2024,05/10/2016 Influenza Adult (Generic) 04/29/2022,04/17/2021, 04/09/2018 MMR 11/26/2000 Tdap (Adacel) 01/29/2023 Family History Medical History Relation Comments Hypertension Brother 1 Hypertension Brother 2 Anxiety Father Dementia Father Hypertension Father TN Father Alcohol Abuse Maternal Grandfather [place] Maternal Grandfather Alzheimers Maternal Grandmother [place] Maternal Grandmother Alzheimers Mother Hypertension Mother Miscarriages / Stillbirths Paternal Aunt [place] Paternal Grandfather Arthritis Paternal Grandmother [place] Paternal Grandmother Relation Status Comments Brother 1 Brother 2 Father Maternal Grandfather Maternal Grandmother Mother Paternal Aunt Paternal Grandfather Paternal Grandmother Social History Tobacco Use Types Packs/Day Years Used Date Smoking Tobacco: Former Cigarettes Q uit: 07/14/1992 Smokeless Tobacco: Never Tobacco Cessation:Counseling Given: Not Answered Alcohol Use Standard Drinks/Week Comments Yes 1.7 (1 standard drin k = 0.6 oz pure alcohol) 1 glass of wine 2-3 times a month AUDIT-C Answer Date Recorded Frequency of Alcohol Consumption 2-4 times a fri02/25/2019 Average Number of Drinks 1 or 2 019 Frequency of Binge Drinking Never 02/11 PHQ-2 Answer Date Recorded Patient Health Questionnaire-2 Score 0 10/22/2023 Comments No Sex and Gender Information Value Date Recorded Sex Assigned at Female 07/02/2024 10:02 AM MULE DRIVER Legal Sex Female 8:02 PM CDT Gender Identity Female 07/02/2024 10:02 AM MULE DRIVER Sexual Orientation Not on file Last Filed Vital Signs Vital Sign Reading Time Taken Comments Blood Pressure 120/90 04/19/2024 1:54 PM CDT Pulse 65 04/19/2024 1:54 PM CDT Temperature 36.2 C (97.2 F) 04/19/2024 1:54 PM CDT Respiratory Rate 18 04/19/2024 1:54 PM CDT Oxygen Saturation 95% 04/19/2024 1:54 PM CDT Inhaled Oxygen Concentration - - Weight 92 kg (202 lb 14.4 oz) 04/19/2024 1:54 PM CDT Height 162.6 cm (5' 4 ) 04/19/2024 1:54 PM CDT Body Mass Index 34.83 04/19/2024 1:54 PM CDT Plan of Treatment Health Maintenance Due Date Last Done Comments ASCVD Statin 1962 Annual Physical 1965 Pneumococcal Vaccine: Pediatrics (0 to 5 Years) and At-Risk Patients (6 to 64 Years) (1 of 2 - PCV) 1968 Mammogram Screening 09/20/2023 09/19/2021 PHQ-2 (Physician [place]) 07/14/2024 10/22/2023 COVID-19 Vaccine ( season) 2025 05/18/2021, 07/24/2020, 07/03/2020 Postponed from 03/14/2024 (Patient Refused) RSV Immunization or 60+ Years (1 - Risk 60-74 years 1-dose series) 04/07/2025 Postponed fro m 2022 (Patient Refused) Zoster Vaccines (1 of 2) 04/07/2025 Pos tponed from 2012 (Patient Refused) Colorectal Cancer Screening Colonoscopy (10 Years) 04/28/2030 04/28/2020, DTaP, Tdap and Td Vaccines (2 - Td or Tdap) 01/29/2033 01/29/2023 Hepatitis C Completed 05/01/2023, 04/13, 05/01/2023, Additional history exists Meningococcal B Vaccine Aged Out No l onger eligible based on patient's age to complete this topic Meningococcal Vaccine Aged Out No nelly jean eligible based on patient's age to complete this topic RSV Immunizations Under 20 Months Aged Out No longer eligible based on patient's age to complete this topic Procedures Procedure Name Priority Date/Time Associated Diagnosis Comments COLLECTION VENOUS BLOOD VENIPUNCTURE Routine 10/06/2024 8:31 AM CDT Fatigue, unspecified type Dizziness THYROXINE, FREE (FT4) Routine 10/06/2024 8:31 AM CDT CBC W/DIFF AUTOMATED Routine 10/06/2024 8:31 AM CDT Fatigue, unspecified type Dizziness TSH W/REFLEX Routine 10/06/2024 8:31 AM CDT Fatigue, unspecified type Dizziness CORONAVIRUS (COVID-19) INFLUENZA A & B ANTIGEN IA PANEL Routine 08/27/2024 Acute cough Chills HEPATITIS C ANTIBODY W/RFX TO HCV RNA Routine 02/05/2023 8:54 AM CDT MAMMOGRAM GENERIC (SCAN ORDER) 09/19/2021 COLONOSCOPY GENERIC (SCAN ORDER) 04/28/2020 from Last 3 Months or Most Recently Relevant to Health Maintenance Results * (ABNORMAL) TSH W/REFLEX (10/06/2024 8:31 AM CDT) TSH 0.122(L) 0.358 - 3.740 uIU/ML 10/06/2024 3:24 PM CDT [facility] 10/06/2024 8:31 AM CDT Ramos Carlos MD LABORATORY Final Result Performing Organization Address [facility]/State/[facility] Co de Phone Number [facility] [address] [place] [address], * (ABNORMAL) CBC W/DIFF AUTOMATED (10/06/2024 8:31 AM CDT) WBC 3.45(L) 4.00 - 10.80 x10'3/uL 10/06/2024 2:55 PM CDT [facility] RBC 4.04(L) 4.10 - 5.40 x10'6/uL 10/06/2024 2:55 PM CDT [facility] HGB 12.6 12.0 - 16.0 G/DL 10/06/2024 2:55 PM CDT [facility] HCT 39.0 36.0 - 47.0 % 10/06/2024 2:55 PM CDT [facility] MCV 96.5 78.0 - 100.0 FL 10/06/2024 2:55 PM CDT [facility] MCH 31.2(H) 27.0 - 31.0 PG 10/06/2024 2:55 PM CDT [facility] MCHC 32.3(L) 33.0 - 36.0 G/DL 10/06/2024 2:55 PM CDT [facility] RDW 12.4 11.5 - 14.5 % 10/06/2024 2:55 PM CDT [facility] PLT 241 150 - 350 x10'3/uL 10/06/2024 2:55 PM CDT [facility] MPV 10.8(H) 7.4 - 10.4 FL 10/06/2024 2:55 PM CDT [facility] DIFFERENTIAL TYPE AUTOMATED DIFFERENTIAL 10/06/2024 2:55 PM CDT [facility] NEUTROPHILS % 49.1 % 10/06/2024 2:55 PM CDT [facility] LYMPHOCYTES % 41.4 % 10/06/2024 2:55 PM CDT [facility] MONOCYTES % 7.5 % 10/06/2024 2:55 PM CDT [facility] EOSINOPHILS % 1.7 % 10/06/2024 2:55 PM CDT [facility] BASOPHILS % 0.3 % 10/06/2024 2:55 PM CDT [facility] IMMATURE GRANS % 0.0 % 10/06/2024 2:55 PM CDT [facility] ABS. NEUTROPHILS 1.69 1.60 - 8.30 x10'3/uL 10/06/2024 2:55 PM CDT [facility] ABS. LYMPHOCYTES 1.43 0.80 - 4.70 x10'3/uL 10/06/2024 2:55 PM CDT [facility] ABS. MONOCYTES 0.26 0.00 - 1.50 x10'3/uL 10/06/2024 2:55 PM CDT [facility] ABS. EOSINOPHILS 0.06 0.00 - 0.40 x10'3/uL 10/06/2024 2:55 PM CDT [facility] ABS. BASOPHILS 0.01 0.00 - 0.20 x10'3/uL 10/06/2024 2:55 PM CDT [facility] ABS. IMMATURE GRANULOCYTES 0.00 0.00 - 0.03 x10'3/uL 10/06/2024 2:55 PM CDT [facility] 10/06/2024 8:31 AM CDT us Ramos Carlos MD LABORATORY Final Result [facility] [address] [place] [address], [place] [phone] * THYROXINE, FREE (FT4) (10/06/2024 8:31 AM CDT) Pathologist [facility] FREE T4 1.37 0.76 - 1.46 NG/DL 10/06/2024 9:53 PM CDT [facility] 10/06/2024 8:31 AM CDT us Ramos Carlos MD LABORATORY Final Result [facility] [address] [place] [address], [place] [phone] [id number] * (ABNORMAL) CORONAVIRUS (COVID-19) INFLUENZA A & B ANTIGEN IA PANEL (08/27/2024) Pathologist [facility] CORONAVIRUS ANTIGEN IA NEGATIVE NEGATIVE [facility] INFLUENZA A POSITIVE(A) NEGATIVE [facility] INFLUENZA B NEGATIVE NEGATIVE [facility] Internal Control: VALID VALID [facility] NASAL STRUCTURE / Unknown 08/27/2024 Lisa NGUYỄN MICROBIOLOGY - GENERAL ORDE RABLES Final Result Performing Organization Address City/[facility]/ZIP Co de Phone Number [facility] [address] [place] [address], [place] * HEPATITIS C ANTIBODY W/RFX TO HCV RNA (02/05/2023 8:54 AM CDT) Pathologist [facility] HEPATITIS C AB NON-REACT AMY NON-REACT [facility] [employer] [facility] Comment: HCV antibody was non-reactive. There is no laboratory evidence of HCV infection. In most cases, no further action is required. However, if recent HCV exposure is suspected, a test for HCV RNA (test code 78392) is suggested. For additional information please refer to http://education.[employer]/faq/UHN26d7 (This link is being provided for informational/ educational purposes only.) 02/05/2023 8:54 AM CDT 02/05/2023 8:59 AM CDT Narrative [facility] - [facility] - 02/11/2023 1:01 PM CDT FASTING:YES MULTIPLE COLLECTION TIMES FOR SAME TEST TYPE. FASTING: YES Resulting Agency Comment Performing Organization Information: Site ID: [id number] Name: [facility] Address: [address] [facility] [place] [address] Director: Clare Falk MD Ramos Carlos MD LABORATORY Final Result Performing Organization Address City/[facility]/ZIP Co de Phone Number [employer] - [facility] [employer] [facility] [address] [place] [address], * MAMMOGRAM GENERIC (09/19/2021) Anatomical Region Laterality Modality Other 09/19/2021 Narrative 09/19/2021 Ordered by an unspecified provider. us Documents Scanned SCANNING Final Result * COLONOSCOPY GENERIC (04/28/2020) 04/28/2020 Narrative 04/28/2020 Ordered by an unspecified provider. us Documents Scanned SCANNING Final Result from Last 3 Months or Most Recently Relevant to Health Maintenance Insurance [facility] Care Teams Passenger Car Upholsterer Apprentice Relationship Specialty Start Date End Date Ramos Carlos MD [address] [place] [address] PCP - General INTERNAL MEDICINE 10/22/18 Mattie Norman MD [address] [place] [address] [address] CARDIOVASCULAR DISEASE 03/17/19 Carlos Benjamin MD [address] [place] [address] [address] GASTROENTEROLOGY 05/19/20
--- OUTSIDE RECORDS SUMMARY | 2024-10-13 15:29 | XMS_ITS | Clinical Summary ---
Author Organization [facility] Address [address] [facility] [place] [address] Care Team Providers Care Forest Engineer Name Role Phone Shivani Weeks MD Primary Care Provider + Source Comments [facility],non-owned Affiliates and Associated Physician Practices is amultiple site organization consisting of ambulatory clinics and hospital sitesin [place], [place], [place] and [place]. This disclosure is being madepursuant to the Care Everywhere program and may not contain all information available regarding this patient. Last updated 18.[facility] Allergies Active Allergy Reactions Criticality Noted Date Comments Meclizine Psychiatric Medium 01/20/2014 Morphine Other Low 01/20/2014 Immunizations Name Administration Dates Next Due HEP B VACCINE, ADULT 3 DOSE 06/30/2001, 1,11/26/2000 INFLUENZA VACCINE 04/29/2022,,04/09/2018, 016 INFLUENZA VACCINE, QUADR. (A FLURIA, FLUZONE QUADRIVALENT; 6MO+) (IIV4) 04/25/2023 INFLUENZA VACCINE, QUADR. (F LUZONE; FLULAVAL; FLUARIX; AFLURIA QUADRIVALENT; 6MO+), 0.5 ML (IIV4) 04/17/2021,03/30/2020,04/01/2019, 018 INFLUENZA VACCINE, TRIV. (FL UZONE; FLULAVAL; FLUARIX; AFLURIA TRIVALENT; 6MO+), 0.5 ML (IIV3) 05/13/2024,05/10/2016 MMR 11/26/2000 TDAP, HISTORIC VACCINE 01/29/2023 Social History Tobacco Use Types Packs/Day Years Used Date Smoking Tobacco: Never Assessed Sex and Gender Information Value Date Recorded Sex Assigned at Not on file Gender Identity Not on file Sexual Orientation Not on file Last Filed Vital Signs Vital Sign Reading Time Taken Comments Blood Pressure 146/74 05/01/2023 1:28 PM CDT Pulse 65 05/01/2023 1:28 PM CDT Temperature 37 C (98.6 F) 05/01/2023 1:28 PM CDT Respiratory Rate 16 05/01/2023 1:28 PM CDT Oxygen Saturation 100% 05/01/2023 1:28 PM CDT Inhaled Oxygen Concentration - - Weight 90.7 kg (200 lb) 05/01/2023 1:28 PM CDT Height 162.6 cm (5' 4 ) 05/01/2023 1:28 PM CDT Body Mass Index 34.33 05/01/2023 1:28 PM CDT Plan of Treatment Health Maintenance Due Date Last Done Comments COLOGUARD (AGES 45-75) - COLON CA SCREENING 1962 COLON MONITORING 1962 COLONOSCOPY - COLON CA SCREENING 1962 CT COLONOGRAPHY - COLON CA SCREENING 1962 Colorectal Cancer Screening 1962 FIT - COLON CA SCREENING 1962 FLEX SIG - COLON CA SCREENING 1962 PAP SMEAR 1962 PNEUMOCOCCAL VACCINE 50+ (1 of 1 - PCV) 2012 ZOSTER VACCINE (1 of 2) 2012 MAMMOGRAM 09/20/2023 09/19/2021 COVID-19 VACCINE ( - 2023- season) 2024 05/18/2021, 07/24/2020, 07/03/2020 DEPRESSION SCREENING 07/14/2024 LIPID TESTING 11/03/2028 11/04/2023, 02/05/2023 DTAP/TDAP/TD VACCINES (2 - Td or Tdap) 01/29/2033 01/29/2023 Respiratory Syncytial Virus (RSV) Vaccine Pt: or over 60 yrs (1 - 1-dose 75+ series) 2037 HEPATITIS B VACCINE Completed 06/30/2001, 12/29/2000, 11/26/2000 HEPATITIS C SCREENING Completed 05/01/2023, 023 HIV SCREENING Completed 05/01/2023 INFLUENZA VACCINE Completed 05/13/2024, , 04/29/2022, Additional history exists HIB VACCINE Aged Out No longer eligi ble based on patient's age to complete this topic HPV VACCINE Aged Out No longer eligi ble based on patient's age to complete this topic MENINGOCOCCAL (Group B) VACCINE SHARED DECISION-MAKING Aged Out No longer eligible based on patient's age to complete this topic MENINGOCOCCAL GROUPS A/C/Y/W VACCINE Aged Out No longer eligible based on patient's age to complete this topic PNEUMOCOCCAL VACCINE Aged Out No long er eligible based on patient's age to complete this topic Procedures Procedure Name Priority Date/Time Associated Diagnosis Comments HEPATITIS C AB SCREEN RFLX NAAT QUANT STAT 05/01/2023 1:54 PM CDT HIV-1 HIV-2 ANTIBODY + HIV P24 AG PANEL STAT 05/01/2023 1:54 PM CDT from Last 3 Months or Most Recently Relevant to Health Maintenance Results * HEPATITIS C AB SCREEN RFLX NAAT QUANT (05/01/2023 1:54 PM CDT) Hepatitis C Antibody Non-react tyler Non-reac tive 05/01/2023 2:54 PM CDT [facility] Comment:Hepatitis C Antibody screen indicates no serologic evidence of past or current infection with Hepatitis C Virus. Patients with unexplained liver disease who are immunocompromised or suspected of having acute Hepatitis C infection may benefit from Nucleic Acid Test ([facility]IAN) for Hepatitis C Viral RNA to confirm Hepatitis C status. Blood BLOOD SPECIMEN / Unknown Venipuncture / Unknown 05/01/2023 1:54 PM CDT 05/01/2023 1:57 PM CDT Rosendo Perez MD LAB - CHEMISTRY [facility] [address] [place] [address], [facility] [phone] * HIV-1 HIV-2 ANTIBODY + HIV P24 AG PANEL (05/01/2023 1:54 PM CDT) HIV Antigen/Antibod y 1 & 2 Non-reacti ve Non-react tyler 05/01/2023 2:54 PM CDT [facility] Comment:No Laboratory eviden ce of HIV infection. Blood BLOOD SPECIMEN / Unknown Venipuncture / Unknown 05/01/2023 1:54 PM CDT 05/01/2023 1:57 PM CDT Rosendo Perez MD LAB - CHEMISTRY [facility] [address] [place] [address], [facility] [phone] from Last 3 Months or Most Recently Relevant to Health Maintenance Care Teams Forest Engineer Relationship Specialty Start Date End Date Shivani Weeks MD [address] [place], [place] [id number] PCP - General 02/10/19
--- OUTSIDE RECORDS SUMMARY | 2024-10-13 15:29 | XMS_ITS | Encounter Summary ---
Author Organization [facility] Care Team Providers Care Tour Actor Name Role Phone Shivani Weeks MD Primary Care Provider Mattie Norman MD Unavailable [phone] Ramos Carlos MD Primary Care Provider [phone] Encounter Details Date Type Department Care Team (Latest Contact Info) Description 05/30/2015 Orders Only [facility] CLINCONV Provider, MD Armida [address] [place] [address] Social History Tobacco Use Types Packs/Day Years Used Date Smoking Tobacco: Former Cigarettes Q uit: 07/14/1996 Alcohol Use Standard Drinks/Week Comments Yes 0 (1 standard drink = 0.6 oz pur e alcohol) Comments Unknown Sex and Gender Information Value Date Recorded Sex Assigned at Not on file Legal 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 Historical Provider Final Res ult documented in this encounter Visit Diagnoses Not on filedocumented in this encounter Additional Health Concerns Infection Onset Date Last Indicated Resolved Time COVID: Suspected 04/06/2021 04/06/2021 04/06/2021 2:04 PM CDT documented as of this encounter Care Teams Tour Actor Relationship Specialty Start Date End Date Shivani Weeks MD [address] [facility] [address] [place] [address] PCP - General 09/20/09 03/18/19 Ramos Carlos MD [address] [place] [address] PCP - General Internal Medicine 03/19/19 Mattie Norman MD [address] [address] Heel Padder Cardiovascular Disease 03/10/19 documented as of this encounter
== END 2024-10-13 14:05 | disposition home or self-care (01) ==
LOC: ANHIMG 14:06
PROVIDERS: PCP Internal Medicine; Visit Provider Internal Medicine
DX: Z12.31 Encounter for screening mammogram for malignant neoplasm of breast (principal)
CPT/HCPCS: 77063; 77067